=== PATIENT | female | born 1995 | race Caucasian/White ===

== ENCOUNTER 2018-04-26 03:20 | Emergency (ER) | payer MEDICAID ==
[2018-04-26 04:05] LABS: BASO % 0.2 % (0.0-1.0); EOS # 0.1 10^3/uL (0.0-0.50); EOS % 1.5 % (0.0-3.0); HEMATOCRIT 40.2 % (36.0-47.0); HEMOGLOBIN 13.8 g/dl (12.0-15.5); IMMATURE GRANULOCYTE % 0.1 % (0-3.0); LYMPH % 44.2 % (24.0-44.0); MEAN CORPUSCULAR HEMOGLOBIN 30.8 pg (27.0-33.0); MEAN CORPUSCULAR HGB CONC 34.3 g/dl (32.0-36.5); MEAN CORPUSCULAR VOLUME 89.7 fl (80.0-96.0); MONO # 0.5 10^3/uL (0.0-0.8); MONO % 5.5 % (0.0-5.0); NEUTROPHILS # 4.3 10^3/uL (1.8-7.7); NEUTROPHILS % 48.5 % (36.0-66.0); PLATELET COUNT, AUTOMATED 345 10^3/uL (150-450); RED BLOOD COUNT 4.48 10^6/uL (4.00-5.40)
[2018-04-26 04:32] LABS: ALBUMIN/GLOBULIN RATIO 1.21 (1.00-1.93); ALKALINE PHOSPHATASE 83 U/L (45-117); ALT/SGPT 27 U/L (12-78); ANION GAP 8 MEQ/L (8-16); AST/SGOT 20 U/L (7-37); BILIRUBIN,DIRECT 0.2 MG/DL (0.0-0.2); BILIRUBIN,TOTAL 0.6 MG/DL (0.2-1.0); BLOOD UREA NITROGEN 7 MG/DL (7-18); CALCIUM LEVEL 8.6 MG/DL (8.5-10.1); CARBON DIOXIDE LEVEL 27 MEQ/L (21-32); CHLORIDE LEVEL 110 MEQ/L (98-107); CPK CREATINE PHOSPHOKINASE 114 U/L (26-192); CREATININE FOR GFR 0.76 MG/DL (0.55-1.30); GLOMERULAR FILTRATION RATE > 60.0 (>60); GLUCOSE, FASTING 85 MG/DL (70-100); POTASSIUM SERUM 3.9 MEQ/L (3.5-5.1); SALICYLATE LEVEL 3.4 MG/DL (5.0-30.0); SODIUM LEVEL 145 MEQ/L (136-145); THYROID STIMULATING HORMONE 0.176 uIU/ML (0.358-3.740); TOTAL PROTEIN 7.3 GM/DL (6.4-8.2)
[2018-04-26 05:17] LABS: ACETAMINOPHEN LEVEL < 2.0 UG/ML (10.0-30.0)
== END 2018-04-26 08:14 | disposition home or self-care (01) ==
LOC: M ED 03:20
DX: F10.129 Alcohol abuse with intoxication, unspecified (principal); F41.9 Anxiety disorder, unspecified; Z79.899 Other long term (current) drug therapy
CPT/HCPCS: 93005

== ENCOUNTER → 2018-06-08 | Outpatient (REF) | payer OTHER ==
[2018-06-08 21:54] LABS: CHLAMYDIA DNA AMPLIFICATION NEGATIVE (NEGATIVE); GC DNA AMPLIFICATION NEGATIVE (NEGATIVE)
== END ==
LOC: M SFHCLERA 17:29
DX: R10.9 Unspecified abdominal pain (principal)
CPT/HCPCS: 87086

== ENCOUNTER → 2018-06-08 | Outpatient (CLI) | payer OTHER | LOC: M LRY 16:20 | DX: M54.5 Low back pain (principal) | CPT/HCPCS: 72110 ==

== ENCOUNTER 2018-11-24 09:19 | Emergency (ER) | payer OTHER ==
[~2018-11-24] VITALS: Ht 162.6 cm; Wt 58.2 kg
[~2018-11-24 09:19] MED LIST: ALPR1TAB3; OXYC15TA76
[2018-11-24] MEDS ORDERED: OXYCOD/APAP (09:25)
[2018-11-24] MEDS ORDERED: PERCOCET 5MG/325MG TAB PO ONE (09:45)
[2018-11-24 11:02] VITALS: BP 135/88
--- NOTE | 2018-11-24 11:15 | REP ---
MAXILLOFACIAL CT WITHOUT CONTRAST: HISTORY: Trauma. The sinuses are clear. The osteomeatal units are patent. The middle and inferior nasal turbinates are partially paradoxical. There is dmitry bullosa of the right middle nasal turbinate. There is minimal deviation of the nasal septum to the right anteriorly and to the left posteriorly. There is dehiscence of the medial wall of the right orbit. The lateral wall of the left orbit, cribriform plate, and optic canals are intact. The carotid canals form a segment of the posterolateral dixon of the sphenoid sinus. There is no fracture. IMPRESSION: There is no acute or chronic sinusitis. Electronically Signed by Sergio Ballard MD 11/24/2018 11:16 A
[2018-11-24] MEDS ORDERED: MOBI4TAB PO (11:36)
== END 2018-11-24 11:42 | disposition home or self-care (01) ==
LOC: M ED 09:19
DX: S02.5XXA Fracture of tooth (traumatic), initial encounter for closed fracture (principal); S01.511A Laceration without foreign body of lip, initial encounter; Y04.8XXA Assault by other bodily force, initial encounter; Y92.59 Other trade areas as the place of occurrence of the external cause; Y99.9 Unspecified external cause status; Z72.0 Tobacco use; Z79.899 Other long term (current) drug therapy

== ENCOUNTER 2019-02-19 22:12 | Emergency (ER) | payer OTHER ==
[~2019-02-19] VITALS: Ht 162.6 cm; Wt 58.2 kg
[~2019-02-19 22:12] MED LIST changes: +MOBI4TAB PO; +OXYCOD/APAP
[2019-02-19 23:50] VITALS: BP 122/81
== END 2019-02-19 23:52 | disposition home or self-care (01) ==
LOC: M ED 22:12
DX: F19.10 Other psychoactive substance abuse, uncomplicated (principal); F12.20 Cannabis dependence, uncomplicated; F14.20 Cocaine dependence, uncomplicated; F17.210 Nicotine dependence, cigarettes, uncomplicated

== ENCOUNTER → 2019-06-28 | Outpatient (CLI) | payer OTHER ==
[2019-06-28 14:17] LABS: HEMATOCRIT 47.2 % (36.0-47.0); MEAN CORPUSCULAR HEMOGLOBIN 29.6 pg (27.0-33.0); MEAN CORPUSCULAR HGB CONC 33.9 g/dl (32.0-36.5); MEAN CORPUSCULAR VOLUME 87.4 fl (80.0-96.0); PLATELET COUNT, AUTOMATED 192 10^3/uL (150-450); WHITE BLOOD COUNT 4.3 10^3/uL (4.0-10.0)
[2019-06-28 15:03] LABS: ALBUMIN 3.8 GM/DL (3.2-5.2); ALT/SGPT 1971 U/L (12-78); BILIRUBIN,TOTAL 1.9 MG/DL (0.2-1.0); BLOOD UREA NITROGEN 11 MG/DL (7-18); CARBON DIOXIDE LEVEL 30 MEQ/L (21-32); CHLORIDE LEVEL 107 MEQ/L (98-107); GLOMERULAR FILTRATION RATE > 60.0 (>60); GLUCOSE, FASTING 111 MG/DL (70-100); SODIUM LEVEL 143 MEQ/L (136-145); THYROID STIMULATING HORMONE 0.769 uIU/ML (0.358-3.740); TOTAL PROTEIN 7.7 GM/DL (6.4-8.2)
[2019-06-30 10:22] LABS: HEPATITIS B SURFACE ANTIGEN NEGATIVE (NEGATIVE)
[2019-06-30 11:53] LABS: HEPATITIS B CORE ANTIBODY IGM NEGATIVE (NEGATIVE)
[2019-06-30 12:11] LABS: HEPATITIS A ANTIBODY IGM POSITIVE (NEGATIVE)
[2019-06-30 12:13] LABS: HEPATITIS C VIRUS ABY INDEX > 11.0 INDEX (<0.8)
== END ==
LOC: M LAB 12:11
PROVIDERS: ATTEND Family Medicine
DX: R53.83 Other fatigue (principal); E03.9 Hypothyroidism, unspecified

== ENCOUNTER 2019-10-03 17:41 | Emergency (ER) | payer OTHER ==
[~2019-10-03] VITALS: Ht 160 cm; Wt 58.1 kg
[2019-10-03 17:42] VITALS: BP 126/69
[2019-10-03] MEDS ORDERED: ACETAMINOPHEN 500 MG TAB PO ONE (18:30)
[2019-10-03 18:36] LABS: BASO % 0.1 % (0.0-1.0); EOS % 0.2 % (0.0-3.0); HEMATOCRIT 40.8 % (36.0-47.0); HEMOGLOBIN 13.6 g/dl (12.0-15.5); LYMPH # 1.7 10^3/uL (1.5-5.0); LYMPH % 10.1 % (24.0-44.0); MEAN CORPUSCULAR HEMOGLOBIN 30.6 pg (27.0-33.0); MEAN CORPUSCULAR HGB CONC 33.3 g/dl (32.0-36.5); MEAN CORPUSCULAR VOLUME 91.7 fl (80.0-96.0); MONO # 0.5 10^3/uL (0.0-0.8); NEUTROPHILS # 14.2 10^3/uL (1.5-8.5); NEUTROPHILS % 86.2 % (36.0-66.0); PLATELET COUNT, AUTOMATED 266 10^3/uL (150-450); RED BLOOD COUNT 4.45 10^6/uL (4.00-5.40); WHITE BLOOD COUNT 16.4 10^3/uL (4.0-10.0)
[2019-10-03 19:18] LABS: ALBUMIN 3.7 GM/DL (3.2-5.2); ALT/SGPT 129 U/L (12-78); BILIRUBIN,DIRECT 0.2 MG/DL (0.0-0.2); BILIRUBIN,TOTAL 0.5 MG/DL (0.2-1.0); BLOOD UREA NITROGEN 11 MG/DL (7-18); CALCIUM LEVEL 8.7 MG/DL (8.5-10.1); CARBON DIOXIDE LEVEL 27 MEQ/L (21-32); CHLORIDE LEVEL 105 MEQ/L (98-107); GLOMERULAR FILTRATION RATE > 60.0 (>60); GLUCOSE, FASTING 81 MG/DL (70-100); HCG, SERUM QUANTITATIVE 70511 MIU/ML; LIPASE 70 U/L (73-393); POTASSIUM SERUM 3.7 MEQ/L (3.5-5.1); SODIUM LEVEL 138 MEQ/L (136-145); TOTAL PROTEIN 7.8 GM/DL (6.4-8.2)
--- NOTE | 2019-10-03 19:27 | REPVR ---
PROCEDURE INFORMATION: Exam: US First Trimester, Transabdominal Exam date and time: 10/03/2019 7:18 PM Age: 24 years old Clinical history: complicated by abdominal or pelvic pain; Generalized abdominal pain; First trimester; Gestational age or lmp: 11; TECHNIQUE: Imaging protocol: Real-time transabdominal obstetrical ultrasound of the maternal pelvis and a first trimester , less than 14 weeks 0 days, with image documentation. COMPARISON: US Abdomen 10/03/2019 7:09 PM FINDINGS: GESTATION: Gestation: Single gestational sac demonstrated within the uterus. Single fetus within the gestational sac. Heart rate: heart rate is 180 beats per minute. Placenta: Anterior placenta. Amniotic fluid: Amniotic and chorionic fluid are normal for gestational age. BIOMETRY: Estimated gestational age: Gestational age based on crown-rump length is 11 weeks 2 days. Patient's clinical dates are uncertain. LEOBARDO is 04/21/2020 based on ultrasound. [place]-Rump length: [place]-rump length measures 4.5 cm. MATERNAL: Uterus: Unremarkable. Cervix: Unremarkable. Right adnexa: Unremarkable. Left adnexa: Complex cyst left ovary likely represents a corpus luteum measuring 1.7 x 1.9 x 2.1 cm. Intraperitoneal: No intraperitoneal free fluid. IMPRESSION: Unremarkable first trimester scan at 11 weeks 2 days. Detailed structural survey can be performed between 19-20 weeks if clinically desired. Electronically signed by: Rober Felix On 10/03/2019 19:26:35 PM
--- NOTE | 2019-10-03 19:31 | REPVR ---
PROCEDURE INFORMATION: Exam: US Retroperitoneal Limited, Kidneys Exam date and time: 10/03/2019 7:18 PM Age: 24 years old Clinical history: Abdominal pain; ; Additional info: Gerson flank pain TECHNIQUE: Imaging protocol: Real-time ultrasound of the retroperitoneum with image documentation. Examination was focused on the kidneys. COMPARISON: No relevant prior studies available. FINDINGS: Right kidney: Right kidney measures 10.3 x 6.3 x 4.4 cm. Left kidney: Left kidney measures 10.6 x 5.9 x 3.8 cm. Bladder: Dependent debris demonstrated within the urinary bladder. Clinical correlation to exclude infection is suggested. IMPRESSION: 1. Dependent debris demonstrated within the urinary bladder. Clinical correlation to exclude infection is suggested. 2. Normal kidneys. Electronically signed by: Rober Felix On 10/03/2019 19:31:17 PM
[2019-10-03] MEDS ORDERED: cefTRIAXone SOD 1 GM VIAL (J0696) IM ONE (21:15)
[2019-10-03] MEDS ORDERED: LIDOCAINE 1% SDV 5 ML VIAL DILUENT ONE (21:15)
[2019-10-03] MEDS ORDERED: KEFL500C17 PO (21:19)
== END 2019-10-03 22:05 | disposition home or self-care (01) ==
LOC: M ED 17:41
DX: O23.01 Infections of kidney in pregnancy, first trimester (principal); N10 Acute pyelonephritis; O99.341 Other mental disorders complicating pregnancy, first trimester; F41.9 Anxiety disorder, unspecified; O98.411 Viral hepatitis complicating pregnancy, first trimester; B19.20 Unspecified viral hepatitis C without hepatic coma; B15.9 Hepatitis A without hepatic coma; O99.321 Drug use complicating pregnancy, first trimester; O99.331 Smoking (tobacco) complicating pregnancy, first trimester; F17.210 Nicotine dependence, cigarettes, uncomplicated; Z3A.11 11 weeks gestation of pregnancy
CPT/HCPCS: 36415; 76775; 76801; 80048; 80076; 81001; 83690; 84702; 85025; 87088; 87186; 96372; 99283; J0696

== ENCOUNTER → 2019-10-18 | Outpatient (CLI) | payer OTHER ==
[~2019-10-18] MED LIST changes: +KEFL500C17 PO
[2019-10-18 10:00] LABS: BASO % 0.3 % (0.0-1.0); EOS # 0.1 10^3/uL (0.0-0.5); HEMATOCRIT 37.5 % (36.0-47.0); HEMOGLOBIN 12.6 g/dl (12.0-15.5); LYMPH % 27.9 % (24.0-44.0); MEAN CORPUSCULAR HEMOGLOBIN 30.8 pg (27.0-33.0); MEAN CORPUSCULAR HGB CONC 33.6 g/dl (32.0-36.5); MEAN CORPUSCULAR VOLUME 91.7 fl (80.0-96.0); MONO # 0.4 10^3/uL (0.0-0.8); MONO % 5.2 % (0.0-5.0); NEUTROPHILS # 4.7 10^3/uL (1.5-8.5); NEUTROPHILS % 65.2 % (36.0-66.0); PLATELET COUNT, AUTOMATED 263 10^3/uL (150-450); RED BLOOD COUNT 4.09 10^6/uL (4.00-5.40); WHITE BLOOD COUNT 7.1 10^3/uL (4.0-10.0)
[2019-10-18 10:29] LABS: ALT/SGPT 61 U/L (12-78); BILIRUBIN,TOTAL 0.3 MG/DL (0.2-1.0); CREATININE FOR GFR 0.48 MG/DL (0.55-1.30); GLOMERULAR FILTRATION RATE > 60.0 (>60); LDH LACTATE DEHYDROGENASE 168 U/L (84-246); URIC ACID 3.3 MG/DL (2.6-6.0)
[2019-10-18 12:48] LABS: CHLAMYDIA DNA AMPLIFICATION NEGATIVE (NEGATIVE); GC DNA AMPLIFICATION NEGATIVE (NEGATIVE)
[2019-10-18 13:19] LABS: RUBELLA IgG QUALITATIVE IMMUNE (IMMUNE)
[2019-10-18 13:48] LABS: HIV 1&2 SCREEN CENTAUR NEGATIVE (NEGATIVE)
[2019-10-18 13:59] LABS: HEPATITIS C VIRUS ABY INDEX > 11.0 INDEX (<0.8)
== END ==
LOC: M LAB 09:10
PROVIDERS: ATTEND Advanced Practice Midwife
DX: Z3A.09 9 weeks gestation of pregnancy (principal)

== ENCOUNTER → 2019-10-19 | Outpatient (CLI) | payer OTHER | LOC: M PLALAB 11:53 | PROVIDERS: ATTEND Advanced Practice Midwife | DX: Z13.79 Encounter for other screening for genetic and chromosomal anomalies (principal) ==

== ENCOUNTER → 2019-11-17 | Outpatient (REF) | payer OTHER | LOC: M SFHCWAGY 17:03 | PROVIDERS: ATTEND Advanced Practice Midwife | DX: O99.322 Drug use complicating pregnancy, second trimester (principal) ==

== ENCOUNTER 2020-03-06 13:46 | Emergency (ER) | payer OTHER ==
[~2020-03-06] VITALS: Ht 160 cm; Wt 72.5 kg
[~2020-03-06 13:46] MED LIST changes: +OXYC-1; -OXYC15TA76
[2020-03-06] MEDS ORDERED: NICO4LOZ PO (13:52)
[2020-03-06] MEDS ORDERED: BUPR8SUB PO (13:52)
[2020-03-06] MEDS ORDERED: M-NA1TAB PO (13:52)
[2020-03-06] MEDS ORDERED: BUTA-198 PO (13:52)
[2020-03-06 15:03] LABS: HEMATOCRIT 35.7 % (36.0-47.0); HEMOGLOBIN 12.1 g/dl (12.0-15.5); MEAN CORPUSCULAR HEMOGLOBIN 30.4 pg (27.0-33.0); MEAN CORPUSCULAR HGB CONC 33.9 g/dl (32.0-36.5); MEAN CORPUSCULAR VOLUME 89.7 fl (80.0-96.0); PLATELET COUNT, AUTOMATED 215 10^3/uL (150-450); RED BLOOD COUNT 3.98 10^6/uL (4.00-5.40); WHITE BLOOD COUNT 8.3 10^3/uL (4.0-10.0)
[2020-03-06 15:37] LABS: ALT/SGPT 45 U/L (12-78); BILIRUBIN,TOTAL 0.6 MG/DL (0.2-1.0); CREATININE FOR GFR 0.42 MG/DL (0.55-1.30); GLOMERULAR FILTRATION RATE > 60.0 (>60); LDH LACTATE DEHYDROGENASE 201 U/L (84-246); URIC ACID 3.4 MG/DL (2.6-6.0)
[2020-03-06] MEDS ORDERED: VALA1TAB5 PO (16:00)
[2020-03-06] MEDS ORDERED: PRED10TA2 PO (16:00)
[2020-03-06 16:09] VITALS: BP 132/67
[2020-03-06 16:25] LABS: CREATININE,RANDOM URINE 54.7 MG/DL; TOTAL PROTEIN,RANDOM URINE 16.2 MG/DL (0.0-12.0)
== END 2020-03-06 16:14 | disposition home or self-care (01) ==
LOC: M ED 13:46
DX: O99.353 Diseases of the nervous system complicating pregnancy, third trimester (principal); G51.0 Bell's palsy; R29.704 NIHSS score 4; O26.893 Other specified pregnancy related conditions, third trimester; M54.9 Dorsalgia, unspecified; O99.343 Other mental disorders complicating pregnancy, third trimester; F90.9 Attention-deficit hyperactivity disorder, unspecified type; O99.323 Drug use complicating pregnancy, third trimester; O99.333 Smoking (tobacco) complicating pregnancy, third trimester; F17.210 Nicotine dependence, cigarettes, uncomplicated; Z3A.33 33 weeks gestation of pregnancy

== ENCOUNTER → 2020-03-26 | Outpatient (REF) | payer OTHER ==
[~2020-03-26] MED LIST changes: +BUPR8SUB PO; +BUTA-198 PO; +M-NA1TAB PO; +NICO4LOZ PO; +PRED10TA2 PO; +VALA1TAB5 PO; +XANA2TAB2 PO
== END ==
LOC: M SFHCWAGY 16:52
PROVIDERS: ATTEND Advanced Practice Midwife
DX: Z34.03 Encounter for supervision of normal first pregnancy, third trimester (principal)

== ENCOUNTER 2020-04-22 21:19 | Inpatient (IN) | payer OTHER ==
[~2020-04-22] VITALS: Ht 160 cm; Wt 70.0 kg
[2020-04-22 21:40] VITALS: BP 151/89
[2020-04-22] MEDS ORDERED: LACTATED RINGER'S 1000 ML IV STA (22:11)
[2020-04-22 22:23] VITALS: BP 135/88
[2020-04-22 22:40] LABS: HEMATOCRIT 39.6 % (36.0-47.0); HEMOGLOBIN 13.8 g/dl (12.0-15.5); MEAN CORPUSCULAR HEMOGLOBIN 30.6 pg (27.0-33.0); MEAN CORPUSCULAR HGB CONC 34.8 g/dl (32.0-36.5); MEAN CORPUSCULAR VOLUME 87.8 fl (80.0-96.0); PLATELET COUNT, AUTOMATED 217 10^3/uL (150-450); RED BLOOD COUNT 4.51 10^6/uL (4.00-5.40); WHITE BLOOD COUNT 9.6 10^3/uL (4.0-10.0)
[2020-04-22 22:52] LABS: AMPHETAMINES URINE REFLEX NEGATIVE (NEGATIVE); BARBITURATES URINE REFLEX NEGATIVE (NEGATIVE); BENZODIAZEPINES URINE REFLEX NEGATIVE (NEGATIVE); CANNABINOIDS URINE REFLEX NEGATIVE (NEGATIVE); COCAINE METABOLITE URINE REFLE NEGATIVE (NEGATIVE); METHADONE URINE REFLEX NEGATIVE (NEGATIVE); OPIATES URINE REFLEX NEGATIVE (NEGATIVE); PHENCYCLIDINE URINE REFLEX NEGATIVE (NEGATIVE)
[2020-04-22] MEDS: BUPRENORPHINE/NALOXONE 8-2MG SUBLINGUAL TABLET(SUBOXONE) SL SCH (22:54)
--- NOTE | 2020-04-22 23:00 | HPEPDOC ---
Obstetrical History & Physical General Date of Admission Apr 22, 2020 at 21:55 Primary Care Physician: ALEXA HAN CNM History of Present Illness Patient is a 25-year-old female who is a at 40.1 weeks gestation with an LEOBARDO of 04/21/20 based off of her first trimester ultrasound. She initiated care in her first trimester with [facility]. 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 Garcia-taking 8 mg of Subutex BID), tobacco use, and Wrens Palsy diagnosed during that has since resolved. She presents with complaints of cramping and spontaneous rupture of membranes at 2029. She reports active movement. She denies vaginal bleeding. 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: History of STD (chlamydia ) Past Medical History Medical History Wrens Palsy that has resolved Hepatitis A Hepatitis C Surgical History: Denies/None Family History Significant Family History: Cancer (lung), Diabetes Social History Marital Status: Family situation: Spouse/partner home (FOB is boyfriend and supportive) Psychosocial History: Anxiety * Smoker: current smoker Alcohol: Denies Drugs: other ( taking subutex for methamphetamine addiction) Abuse Violence Screening Have you been hit/kicked/slapp: No Have you been sexually assault: No Allergies Coded Allergies: No Known Allergies (Unverified , 04/26/18) Medications Scheduled Buprenorphine HCl (Buprenorphine HCl) 8 Mg Tab.subl, PO BID Pnv,Calcium 72/Iron/Folic Acid (M- Plus Tablet) 1 Each Tablet, PO DAILY Scheduled PRN Alprazolam (Xanax) 2 Mg Tablet, 2 MG PO BIDP PRN for anxiety Butalb/Acetaminophen/Caffeine (Mbhpox-Rfgnauua-Mojs 50-325-40) 1 Each Tablet, PO PRN PRN for ABRAHAM Physical Examination Physical Examination GENERAL: Alert and oriented times three. BREAST: . ABDOMEN: Gravid and non-tender to touch. FETUS: Is vertex (VTX) by sterile vaginal examination (SVE), fetus is vertex (VTX) by Kj. HEART RATE: Regular rate and rhythm. LUNGS: Clear to auscultation (CTA). EXTREMITIES: No edema. No clonus. Deep tendon reflexes (DTRs) + 2. Laboratory Data 24H LABS Laboratory Tests 2 04/22/20 21:35: 04/22/20 22:02: Serology Scanned Report Hepatitis B Testing 04/22/20 22:30: CBC/BMP Urine Culture: No Growth Pertinent Laboratoy Data Blood Type: O+ RBC Antibody Screen: Negative HIV: Negative Hepatitis B: Negative Hepatitis C: Positive Rapid Plasma Reagin: Nonreactive Rubella: Immune Chlamydia/Gonorrhea: Negative Group B Streptococcus: Negative Cystic Fibrosis: Positive Diag/Inter Therapy NIPT low risk male Vaginal Examination Dilation: 1cm Effacement: 50% Station: -2 Cervical Consistency: Soft Presentation: Cephalic presentation Position: Vertex (occiput) Assessment Heart Rate (FHR): 120 Variability: Moderate Accelerations: Positive Decelerations: None Tocometer Contractions: Yes Frequency: regular, every 2-5 min. Strength: palpated as mild Multi-drug resistant Organism: No history of MDRO Assessment/Plan Assessment IUP at 40.1 weeks gestation SROM GBS negative Category I FHR tracing Plan Admit to L&D. OOB ad slime. Diet: regular then when IV Pitocin is started switch to clears. Group B Streptococcus (GBS) negative. Labs and intravenous (IV) per unit protocol. Counseled on Cytotec and IV Pitocin for augmentation of labor (IOL). Anesthesia consult per patient' request. Lactated Ringers (LR): Bolus 800 mL, then at 125 mL/hr. If patient has made minimal change or contractions start to space out in the next 4 hours consider augmentation. Anticipate cervical change. C-S as appropriate. ALEXA HAN CNM Apr 22, 2020 23:00
[2020-04-22 23:05] LABS: ALT/SGPT 28 U/L (12-78); BILIRUBIN,TOTAL 0.4 MG/DL (0.2-1.0); CREATININE FOR GFR 0.54 MG/DL (0.55-1.30); GLOMERULAR FILTRATION RATE > 60.0 (>60); LDH LACTATE DEHYDROGENASE 178 U/L (84-246); URIC ACID 4.5 MG/DL (2.6-6.0)
[2020-04-23] VITALS (32 sets, daily range): BP systolic 108–147; BP diastolic 55–91
[2020-04-23] MEDS ORDERED: miSOPROStol 50 MCG 1/2 TAB (S0191) PO SCH (02:00)
[2020-04-23] MEDS ORDERED: hydrOXYzine 50 MG TAB PO STA (03:07)
[2020-04-23] MEDS ORDERED: FENTANYL 2MCG/ML ROPIVACAINE 0.2% IN 0.9% NACL 100ML IVBAG As Ordered ONE (05:17)
[2020-04-23] MEDS ORDERED: REFRIGERATOR IV KEYS XX PRN (06:15)
[2020-04-23] MEDS ORDERED: ONDANSETRON 4MG/2ML VIAL IV PRN (06:15)
[2020-04-23] MEDS ORDERED: FENTANYL/ROPIVACAINE/NACL BAG 100 ML EPIDURAL SCH (06:15)
[2020-04-23] MEDS ORDERED: ePHEDrine SULFATE 25 MG/5 ML(5MG/ML) SYRINGE IV PRN (06:15)
[2020-04-23] MEDS ORDERED: LACTATED RINGER'S 1000 ML IV PRN (06:15)
[2020-04-23] MEDS ORDERED: EPIDURAL COMMENT XX SCH (06:15)
[2020-04-23] MEDS ORDERED: NALOXONE INJ 0.4MG/1ML VIAL (J2310 PER 1MG) IV PRN (06:15)
[2020-04-23] MEDS ORDERED: diphenhydrAMINE 50MG/ML VIAL (J1200) IV PRN (06:15)
[2020-04-23] MEDS ORDERED: EPIDURAL/PCA KEYS XX PRN (06:15)
[2020-04-23] MEDS ORDERED: OXYTOCIN DRIP 30 UNITS in IV 1 EA IV SCH ×2 (07:45→11:24)
[2020-04-23] MEDS ORDERED: LR 1,000 ML IV SCH (07:45)
[2020-04-23] MEDS: PRENATAL VITAMINS CHEWABLE TABLET PO SCH (09:00)
--- NOTE | 2020-04-23 11:23 | DNPDOC ---
[facility] Delivery Note Delivery Note DATE OF DELIVERY: 04/23/20 at 1054 PREDELIVERY DIAGNOSIS: 40-3/7 weeks' gestation and labor. POST DELIVERY DIAGNOSIS: Delivered. PROCEDURE: Spontaneous vaginal delivery. 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 ESTIMATED BLOOD LOSS: 250 mL. FINDINGS: 6 pounds 1 ounce; 2750 grams; male , Score 8/9, nuchal cord times 1 loose, taking Subutex for history of drug abuse in first trimeter, meconium. DELIVERY SUMMARY: Patient is a 25-year-old female who is now a who presented to L&D after she spontaneously ruptured at home to a large amount of light meconium. She received one dose of Cytotec and IV Pitocin for augmentation. The patient requested an epidural for pain management. She progressed to fully dilated at 1010 and pushed to a living male in the CESAR position with restitution to LOT. A nuchal cord was noted. The anterior shoulder delivered with ease and the corpus immediately followed at 1054. The baby was placed [id number] active and crying with stimulation. The cord was clamped x2 after pulsation ceased and cut by the FOB. A 3-vessel cord was noted. The placenta delivered spontaneously and intact at 1059. Uterine hemostasis was achieved via rapid infusion of IV Pitocin and fundal massage. The vagina, cervix, and perineum was inspected and found to be intact. Mom plans to breast feed. Both mom and baby are in stable condition. All counts of instruments and sponges are correct. ALEXA ALVA CNM Apr 23, 2020 11:23
[2020-04-23] MEDS ORDERED: IBUPROFEN 800 MG TAB PO PRN (11:30)
[2020-04-23] MEDS ORDERED: IBUPROFEN 600MG TAB PO PRN (11:30)
[2020-04-23] MEDS ORDERED: MEASLES,MUMPS,RUBELLA VACCINE INJ (MMR-II) (90707) SC SCH (11:30)
[2020-04-23] MEDS ORDERED: ANUSOL HC CREAM 30GM TOP PRN (11:30)
[2020-04-23] MEDS ORDERED: RHOGAM 300 MCG (1500 IU) INJ (J2790) IM SCH (11:30)
[2020-04-23] MEDS ORDERED: DIBUCAINE 1% OINTMENT 30GM TOP PRN (11:30)
[2020-04-23] MEDS ORDERED: DOCUSATE SODIUM 100 MG CAP PO PRN (11:30)
[2020-04-23] MEDS ORDERED: ACETAMINOPHEN 500 MG TAB PO PRN (11:30)
[2020-04-23] MEDS ORDERED: ACETAMINOPHEN TAB 650MG DOSE (2X325MG) PO PRN (11:30)
[2020-04-23] MEDS ORDERED: METHYLERGONOVINE MALEATE 0.2 MG TAB PO PRN (11:30)
[2020-04-23] MEDS: BUPRENORPHINE/NALOXONE 8-2MG SUBLINGUAL TABLET(SUBOXONE) SL SCH ×2 (11:36→21:01)
[2020-04-24 05:49] VITALS: BP 104/52
--- NOTE | 2020-04-24 06:43 | IPNPDOC ---
Progress Note Date of Service: Apr 24, 2020 Day#: 1 Progress Note SUBJECT: Doing well without complaints. Ambulating, voiding and pain is well-c ontrolled. Reports minimal lochia. OBJECTIVE: VITAL SIGNS: Within normal limits, afebrile. Alert and oriented times three. Abdomen: Fundus firm at U-2. Soft, NTTP. Ext: neg calf tenderness. ASSESSMENT: day #1 status post normal spontaneous vaginal delivery. Recovering in stable condition. PLAN: 1. Continue routine care 2. Discharge plans for tomorrow VS, I&O, 24H, Fishbone Vital Signs/I&O Vital Signs Date Time Temp Pulse Resp B/P (MAP) Pulse Ox O2 Delivery O2 Flow Rate FiO2 04/24/20 05:49 97.7 82 16 104/52 (69) 98 Room Air I&O- Last 24 Hours up to 6 AM 04/24/20 06:00 Intake Total 3190 ml Output Total 250 ml Balance 2940 ml PERLA GALVEZ MD. Apr 24, 2020 06:43
[2020-04-24] MEDS: PRENATAL VITAMINS CHEWABLE TABLET PO SCH (08:28)
[2020-04-24] MEDS: BUPRENORPHINE/NALOXONE 8-2MG SUBLINGUAL TABLET(SUBOXONE) SL SCH ×2 (08:29→21:29)
[2020-04-24 18:00] VITALS: BP 123/84
[2020-04-25 06:00] VITALS: BP 126/60
[2020-04-25] MEDS: PRENATAL VITAMINS CHEWABLE TABLET PO SCH (08:38)
[2020-04-25] MEDS: BUPRENORPHINE/NALOXONE 8-2MG SUBLINGUAL TABLET(SUBOXONE) SL SCH (08:38)
[2020-04-25] MEDS ORDERED: ACET-683 PO (09:34)
== END 2020-04-25 14:25 | disposition home or self-care (01) | DRG 560 ==
LOC: M LDO 21:19 → M LDI 21:55 → M OBS 04-23 14:04
PROVIDERS: ADMIT Advanced Practice Midwife; ATTEND Advanced Practice Midwife
PROC: 10E0XZZ Delivery of Products of Conception, External Approach (ICD-10-PCS; principal; 2020-04-23)
DX: O48.0 Post-term pregnancy (principal); Z3A.40 40 weeks gestation of pregnancy; O69.81X0 Labor and delivery complicated by cord around neck, without compression, not applicable or unspecified; Z37.0 Single live birth; B19.20 Unspecified viral hepatitis C without hepatic coma; B15.9 Hepatitis A without hepatic coma; O98.42 Viral hepatitis complicating childbirth; O99.334 Smoking (tobacco) complicating childbirth; F17.210 Nicotine dependence, cigarettes, uncomplicated; Z79.899 Other long term (current) drug therapy

== ENCOUNTER → 2020-11-12 | Outpatient (REF) | payer OTHER ==
[~2020-11-12] MED LIST changes: +ACET-683 PO
== END ==
LOC: M SFHCWAGY 10:07
PROVIDERS: ATTEND Advanced Practice Midwife
DX: Z11.3 Encounter for screening for infections with a predominantly sexual mode of transmission (principal)

== ENCOUNTER → 2021-07-22 | Outpatient (REF) | payer OTHER ==
[2021-07-22 17:49] LABS: GC DNA AMPLIFICATION NEGATIVE (NEGATIVE)
== END ==
LOC: M LAB REF 15:36
PROVIDERS: ATTEND Surgery
DX: A64 Unspecified sexually transmitted disease (principal)

== ENCOUNTER → 2022-04-24 | Outpatient (REF) | payer SELFPAY | LOC: M LAB REF 18:58 | PROVIDERS: ATTEND Nurse Practitioner Family | DX: Z12.4 Encounter for screening for malignant neoplasm of cervix (principal) ==

== ENCOUNTER → 2022-06-25 | Outpatient (REF) | payer OTHER | LOC: M SFHCDERM 12:47 | PROVIDERS: ATTEND Nurse Practitioner Family | DX: L02.91 Cutaneous abscess, unspecified (principal) ==

== ENCOUNTER → 2022-07-03 | Outpatient (CLI) | payer OTHER ==
[2022-07-03 17:45] LABS: BASO % 0.4 % (0.0-1.0); EOS # 0.1 10^3/uL (0.0-0.5); EOS % 1.6 % (0.0-3.0); HEMATOCRIT 43.7 % (36.0-47.0); HEMOGLOBIN 14.2 g/dl (12.0-15.5); LYMPH # 3.1 10^3/uL (1.5-5.0); LYMPH % 36.3 % (24.0-44.0); MEAN CORPUSCULAR HEMOGLOBIN 28.6 pg (27.0-33.0); MEAN CORPUSCULAR HGB CONC 32.5 g/dl (32.0-36.5); MEAN CORPUSCULAR VOLUME 87.9 fl (80.0-96.0); MONO # 0.4 10^3/uL (0.0-0.8); MONO % 4.1 % (2.0-8.0); NEUTROPHILS # 4.9 10^3/uL (1.5-8.5); NEUTROPHILS % 57.4 % (36.0-66.0); PLATELET COUNT, AUTOMATED 330 10^3/uL (150-450); RED BLOOD COUNT 4.97 10^6/uL (4.00-5.40); WHITE BLOOD COUNT 8.5 10^3/uL (4.0-10.0)
[2022-07-03 18:24] LABS: ALBUMIN 4.1 GM/DL (3.2-5.2); ALT/SGPT 74 U/L (12-78); BLOOD UREA NITROGEN 25 MG/DL (7-18); CALCIUM LEVEL 9.9 MG/DL (8.5-10.1); CARBON DIOXIDE LEVEL 28 MEQ/L (21-32); CHLORIDE LEVEL 104 MEQ/L (98-107); GLOMERULAR FILTRATION RATE > 60.0 (>60); GLUCOSE, FASTING 101 MG/DL (70-100); POTASSIUM SERUM 4.5 MEQ/L (3.5-5.1); SODIUM LEVEL 136 MEQ/L (136-145); TOTAL PROTEIN 7.5 GM/DL (6.4-8.2)
== END ==
LOC: M ADAMS 15:18
PROVIDERS: ATTEND Nurse Practitioner Family
DX: L40.0 Psoriasis vulgaris (principal)

== ENCOUNTER → 2022-07-14 | Outpatient (CLI) | payer OTHER ==
[2022-07-14 16:07] LABS: ALBUMIN 4.1 GM/DL (3.2-5.2); BILIRUBIN,DIRECT 0.4 MG/DL (0.0-0.2); BILIRUBIN,TOTAL 0.8 MG/DL (0.2-1.0); TOTAL PROTEIN 7.5 GM/DL (6.4-8.2)
[2022-07-16 19:09] LABS: HEPATITIS C QUANTITATION 3150000 IU/mL (.)
== END ==
LOC: M PLALAB 13:40
PROVIDERS: ATTEND Internal Medicine Infectious Disease
DX: B18.2 Chronic viral hepatitis C (principal)

== ENCOUNTER 2022-07-22 13:45 | Outpatient (RCR) | payer OTHER | END 2022-08-07 | LOC: M PT 13:45 | PROVIDERS: ATTEND Nurse Practitioner Family | DX: L40.9 Psoriasis, unspecified (principal) ==